=== PATIENT | male | born 1970 | race American Indian/Alaskan Native ===

== ENCOUNTER 2017-03-19 17:10 | Emergency (ER) | payer MEDICAID ==
[2017-03-19 17:35] LABS: Basophils % (Auto) 0.2 % (0.0-1.8); Eosinophils % (Auto) 0.3 % (0.0-4.3); Hematocrit 47.2 % (35.5-45.6); Hemoglobin 16.1 gm/dl (11.8-15.2); Mean Corpuscular HGB Conc 34 % (32-34); Mean Corpuscular Hemoglobin 30 pg (28-32); Mean Corpuscular Volume 89 fl (84-94); Platelet Count 256 K/mm3 (140-440); Red Blood Count 5.33 M/mm3 (3.65-5.03); Red Cell Distribution Width 13.3 % (13.2-15.2); White Blood Count 7.1 K/mm3 (4.5-11.0)
[2017-03-19 17:54] LABS: Anion Gap 18 mmol/L; Blood Urea Nitrogen 10 mg/dL (9-20); Calcium 8.8 mg/dL (8.4-10.2); Carbon Dioxide 21 mmol/L (22-30); Chloride 103.8 mmol/L (98-107); Glucose 102 mg/dL (75-100); Potassium 3.8 mmol/L (3.6-5.0); Sodium 139 mmol/L (137-145)
[2017-03-19 18:15] LABS: Bilirubin,Urine NEG (Negative); Blood,Urine NEG (Negative); Ketones,Urine TR mg/dL (Negative); Leukocyte Esterase,Urine NEG (Negative); Mucus,Urine 3+ /HPF; Nitrite,Urine NEG (Negative); WBC,Urine < 1.0 /HPF (0.0-6.0)
[2017-03-19] MEDS ORDERED: ZOFRAN ODT PO ONE (20:15)
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
[2017-03-19 20:44] VITALS: BP 103/73
[2017-03-19] MEDS ORDERED: CARAFATE PO ONE (21:00)
== END 2017-03-19 20:50 | disposition home or self-care (01) ==
LOC: ED 17:10
DX: R19.7 Diarrhea, unspecified (principal); R11.2 Nausea with vomiting, unspecified; F17.200 Nicotine dependence, unspecified, uncomplicated; F12.10 Cannabis abuse, uncomplicated; F14.10 Cocaine abuse, uncomplicated
CPT/HCPCS: 36415; 80048; 81001; 85025; 99283; Q0162

== ENCOUNTER 2017-08-02 13:36 | Emergency (ER) | payer MEDICAID ==
[2017-08-02 15:50] VITALS: BP 109/69
== END 2017-08-02 22:04 | disposition left against medical advice (07) ==
LOC: ED 13:36
DX: M54.9 Dorsalgia, unspecified (principal); Z53.21 Procedure and treatment not carried out due to patient leaving prior to being seen by health care provider

== ENCOUNTER 2017-08-03 15:36 | Emergency (ER) | payer MEDICAID ==
[2017-08-03 17:43] LABS: Basophils % (Auto) 0.4 % (0.0-1.8); Eosinophils % (Auto) 0.5 % (0.0-4.3); Hematocrit 41.2 % (35.5-45.6); Hemoglobin 14.1 gm/dl (11.8-15.2); Mean Corpuscular HGB Conc 34 % (32-34); Mean Corpuscular Hemoglobin 31 pg (28-32); Mean Corpuscular Volume 90 fl (84-94); Platelet Count 210 K/mm3 (140-440); Red Cell Distribution Width 13.7 % (13.2-15.2); White Blood Count 4.1 K/mm3 (4.5-11.0)
[2017-08-03 17:56] LABS: Anion Gap 15 mmol/L; BUN/Creatinine Ratio 16; Blood Urea Nitrogen 13 mg/dL (9-20); Calcium 8.9 mg/dL (8.4-10.2); Carbon Dioxide 28 mmol/L (22-30); Chloride 99.1 mmol/L (98-107); Glucose 83 mg/dL (75-100); Potassium 3.9 mmol/L (3.6-5.0); Sodium 138 mmol/L (137-145)
[2017-08-03 19:56] LABS: Urine Drugs of Abuse Note Disclamer
[2017-08-03 20:24] LABS: Bilirubin,Urine NEG (Negative); Blood,Urine NEG (Negative); Ketones,Urine TR mg/dL (Negative); Leukocyte Esterase,Urine NEG (Negative); Mucus,Urine 3+ /HPF; Nitrite,Urine NEG (Negative)
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
[2017-08-04 01:12] LABS: Creatine Kinase 53 units/L (55-170)
[2017-08-04 01:19] LABS: Creatine Kinase MB < 1.0 ng/mL (0.0-4.0)
[2017-08-04 04:49] VITALS: BP 99/73
== END 2017-08-04 04:45 | disposition home or self-care (01) ==
LOC: ED 15:36 → EEVIPCON 15:36 → ED 08-04 04:45
DX: F14.10 Cocaine abuse, uncomplicated (principal); F12.10 Cannabis abuse, uncomplicated; F17.200 Nicotine dependence, unspecified, uncomplicated
CPT/HCPCS: 36415; 80048; 80307; 81001; 82550; 82553; 84484; 85025; 93005; 93010; 99284; G0480; 80320

== ENCOUNTER 2017-10-29 03:05 | Emergency (ER) | payer MEDICAID ==
[2017-10-29] MEDS ORDERED: NORCO 5/325 PO ONE (07:32)
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
[2017-10-29 07:55] LABS: Bilirubin,Urine NEG (Negative); Blood,Urine NEG (Negative); Color,Urine Yellow (Yellow); Mucus,Urine 3+ /HPF; Nitrite,Urine NEG (Negative); Protein,Urine <15 mg/dL mg/dL (Negative)
--- NOTE | 2017-10-29 08:06 | Cat Scan Report ---
CT HEAD WITHOUT CONTRAST: HISTORY: Headache. TECHNIQUE: Sequential 2.5mm CT images. COMPARISON: none. FINDINGS: Cerebral Parenchyma: Within normal limits. Cerebellum: Within normal limits. Brainstem: Within normal limits. Ventricles: Normal. Sella: Normal. Extra-axial spaces: Normal. Basal Cisterns: Normal. Intracranial Hemorrhage: None. Midline Shift: None. Calvarium: Normal. Sinuses: Normal. Mastoid Air Cells: Normal. Visualized Orbits: Normal. IMPRESSION: Cranial CT scan within normal limits. No significant change since 10/19/13.
--- NOTE | 2017-10-29 08:26 | XRay Report ---
LUMBOSACRAL SPINE, 3 VIEWS: History: Lower back pain Findings: The vertebral bodies, disk spaces and posterior elements are intact. No compression deformity or malalignment. Moderate hypertrophic facet arthropathy is identified at the lowest 3 levels. The SI joints are symmetric and unremarkable. Impression: Mild lumbar spondylosis primarily involving the lower lumbar facet joints.
[2017-10-29 08:29] LABS: Basophils % (Auto) 0.5 % (0.0-1.8); Eosinophils % (Auto) 0.5 % (0.0-4.3); Hematocrit 39.3 % (35.5-45.6); Hemoglobin 13.3 gm/dl (11.8-15.2); Lymphocytes # (Auto) 1.1 K/mm3 (1.2-5.4); Lymphocytes % (Auto) 17.3 % (13.4-35.0); Mean Corpuscular HGB Conc 34 % (32-34); Mean Corpuscular Hemoglobin 31 pg (28-32); Mean Corpuscular Volume 92 fl (84-94); Monocytes # (Auto) 0.8 K/mm3 (0.0-0.8); Monocytes % (Auto) 11.8 % (0.0-7.3); Platelet Count 260 K/mm3 (140-440); Red Blood Count 4.29 M/mm3 (3.65-5.03)
[2017-10-29 08:49] LABS: BUN/Creatinine Ratio 14; Blood Urea Nitrogen 14 mg/dL (9-20); Calcium 8.5 mg/dL (8.4-10.2); Hemolysis Index 8
[2017-10-29 10:38] VITALS: BP 102/58
== END 2017-10-29 10:55 | disposition home or self-care (01) ==
LOC: ED 03:05
DX: M54.9 Dorsalgia, unspecified (principal); R82.71 Bacteriuria; F17.200 Nicotine dependence, unspecified, uncomplicated; F14.10 Cocaine abuse, uncomplicated; F12.10 Cannabis abuse, uncomplicated
CPT/HCPCS: 36415; 70450; 72100; 80048; 81001; 82140; 82550; 85025; 87086; 99284

== ENCOUNTER 2017-11-29 13:38 | Emergency (ER) | payer MEDICAID ==
[2017-11-29 14:01] VITALS: BP 108/76
== END 2017-11-29 14:05 | disposition left against medical advice (07) ==
LOC: ED 13:38
DX: M54.9 Dorsalgia, unspecified (principal); Z53.21 Procedure and treatment not carried out due to patient leaving prior to being seen by health care provider

== ENCOUNTER 2017-12-05 10:43 | Emergency (ER) | payer MEDICAID ==
[2017-12-05] MEDS ORDERED: TYLENOL PO ONE (11:29)
[2017-12-05] MEDS ORDERED: TYLENOL ONE (11:29)
[2017-12-05 11:49] LABS: Basophils % (Auto) 0.3 % (0.0-1.8); Hematocrit 40.9 % (35.5-45.6); Hemoglobin 13.9 gm/dl (11.8-15.2); Lymphocytes # (Auto) 0.7 K/mm3 (1.2-5.4); Lymphocytes % (Auto) 14.5 % (13.4-35.0); Mean Corpuscular HGB Conc 34 % (32-34); Mean Corpuscular Hemoglobin 31 pg (28-32); Mean Corpuscular Volume 89 fl (84-94); Monocytes # (Auto) 0.6 K/mm3 (0.0-0.8); Platelet Count 209 K/mm3 (140-440); Red Blood Count 4.57 M/mm3 (3.65-5.03); Red Cell Distribution Width 12.6 % (13.2-15.2)
[2017-12-05 12:04] LABS: BUN/Creatinine Ratio 10; Blood Urea Nitrogen 12 mg/dL (9-20); Calcium 8.5 mg/dL (8.4-10.2); Hemolysis Index 3
--- NOTE | 2017-12-05 12:21 | XRay Report ---
ROUTINE CHEST, TWO VIEWS: HISTORY: Shortness of breath. The trachea, heart, mediastinal contour, lung washburn and bony thorax are unremarkable. IMPRESSION: No acute cardiopulmonary process identified.
[2017-12-06] MEDS ORDERED: TYLENOL ONE (01:05)
[2017-12-06] MEDS ORDERED: TYLENOL PO ONE (01:05)
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
[2017-12-06 03:52] LABS: Bacteria,Urine 1+ /HPF (Negative); Bilirubin,Urine NEG (Negative); Blood,Urine NEG (Negative); Color,Urine Amber (Yellow); Hyaline Casts,Urine 2 /LPF; Mucus,Urine 3+ /HPF; Nitrite,Urine NEG (Negative)
[2017-12-06] MEDS ORDERED: LEVAQUIN PO ONE (04:05)
[2017-12-06 04:42] VITALS: BP 120/70
== END 2017-12-06 05:00 | disposition home or self-care (01) ==
LOC: ED 10:43
DX: R50.9 Fever, unspecified (principal); R05 Cough; Z21 Asymptomatic human immunodeficiency virus [HIV] infection status; F17.200 Nicotine dependence, unspecified, uncomplicated; F14.10 Cocaine abuse, uncomplicated
CPT/HCPCS: 36415; 71046; 80048; 81001; 85025; 87040

== ENCOUNTER 2018-07-15 22:52 | Emergency (ER) | payer MEDICAID | END 2018-07-15 23:00 | disposition left against medical advice (07) | LOC: ED 22:52 | DX: R50.9 Fever, unspecified (principal); Z53.21 Procedure and treatment not carried out due to patient leaving prior to being seen by health care provider ==

== ENCOUNTER 2018-12-06 16:22 | Emergency (ER) | payer MEDICAID ==
[2018-12-06 16:36] VITALS: BP 120/66
[2018-12-06] MEDS ORDERED: BOOSTRIX IM ONE (16:40)
[2018-12-06] MEDS ORDERED: DILAUDID IM ONE (16:40)
[2018-12-06] MEDS ORDERED: CLEOCIN PO ONE (16:41)
--- NOTE | 2018-12-06 17:05 | XRay Report ---
FINAL REPORT PROCEDURE: Right and left feet. TECHNIQUE: Portable AP and lateral views of each foot. HISTORY: Bilateral foot pain. COMPARISON: No prior studies are available for comparison. FINDINGS: Right foot: The bones appear intact without fracture or dislocation. The joint spaces appear satisfac tory. The soft tissues are unremarkable. Left foot: The bones appear intact without fracture or dislocation. The joint spaces appear satisfact ory. The soft tissues are unremarkable. IMPRESSION: Normal studies of both feet.
[2018-12-06 17:20] LABS: Hematocrit 37.9 % (35.5-45.6); Mean Corpuscular HGB Conc 34 % (32-34); Mean Corpuscular Volume 87 fl (84-94); Platelet Count 235 K/mm3 (140-440); Red Blood Count 4.36 M/mm3 (3.65-5.03); Red Cell Distribution Width 12.8 % (13.2-15.2)
[2018-12-06 17:40] LABS: BUN/Creatinine Ratio 17; Blood Urea Nitrogen 12 mg/dL (9-20); Calcium 8.6 mg/dL (8.4-10.2); Hemolysis Index 11
[2018-12-06 17:58] LABS: Erythrocyte Sedimentation Rate 12 mm/Hr (0-20)
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
[2018-12-06] MEDS ORDERED: K-DUR PO ONE (19:08)
== END 2018-12-06 20:11 | disposition home or self-care (01) ==
LOC: ED 16:22
DX: M79.671 Pain in right foot (principal); M79.672 Pain in left foot; Z21 Asymptomatic human immunodeficiency virus [HIV] infection status; F17.200 Nicotine dependence, unspecified, uncomplicated
CPT/HCPCS: 36415; 73620; 80048; 82550; 85027; 85652; 86140; 90471; 90715; 96372; 99284; J1170